=== PATIENT | male | born 1960 | race Two or more races ===

== ENCOUNTER 2019-06-22 09:09 | Outpatient (CLI) | payer OTHER | END 2019-06-22 15:00 | disposition home or self-care (01) | LOC: LAB 09:09 | DX: K65.0 Generalized (acute) peritonitis (principal); R10.32 Left lower quadrant pain; K57.32 Diverticulitis of large intestine without perforation or abscess without bleeding; K59.04 Chronic idiopathic constipation; K62.4 Stenosis of anus and rectum ==

== ENCOUNTER 2019-06-30 06:10 | Day surgery (SDC) | payer OTHER | END 2019-06-30 11:15 | disposition home or self-care (01) | LOC: AMB-ENDOS 06:10 | DX: K62.4 Stenosis of anus and rectum (principal); K57.30 Diverticulosis of large intestine without perforation or abscess without bleeding ==

== ENCOUNTER 2020-05-24 15:19 | Inpatient (IN) | payer OTHER ==
[~2020-05-24] VITALS: Ht 160 cm; Wt 74.8 kg
[2020-06-09] MEDS ORDERED: HYOSCYAMINE0.125 M1 SL (14:47)
[2020-06-09] MEDS ORDERED: PANTOPRAZOLE SO40 MG PO (14:48)
[2020-06-09] MEDS ORDERED: DICLOFENAC SODI75 MG PO (14:48)
[2020-06-09] MEDS ORDERED: INTESTINEX680 M1 PO (14:48)
== END 2020-06-09 16:50 | disposition home or self-care (01) | DRG 330 ==
LOC: SURH 06-06 05:25 → O/R 06-06 05:25 → SURH 06-06 08:45
PROVIDERS: ADMIT Surgery; ATTEND Surgery
PROC: 0DBN4ZZ Excision of Sigmoid Colon, Percutaneous Endoscopic Approach (ICD-10-PCS; principal; 2020-06-06 10:15)
DX: K57.30 Diverticulosis of large intestine without perforation or abscess without bleeding (principal); K91.30 Postprocedural intestinal obstruction, unspecified as to partial versus complete; Z20.828 Contact with and (suspected) exposure to other viral communicable diseases

== ENCOUNTER 2020-12-09 08:08 | Outpatient (CLI) | payer OTHER ==
[~2020-12-09 08:08] MED LIST: DICLOFENAC SODI75 MG PO; HYOSCYAMINE0.125 M1 SL; INTESTINEX680 M1 PO; PANTOPRAZOLE SO40 MG PO
== END 2020-12-09 15:28 | disposition home or self-care (01) ==
LOC: TOM 08:08
PROVIDERS: ATTEND Surgery
DX: N20.0 Calculus of kidney (principal); K57.32 Diverticulitis of large intestine without perforation or abscess without bleeding; K62.4 Stenosis of anus and rectum; K59.04 Chronic idiopathic constipation; R10.32 Left lower quadrant pain

== ENCOUNTER 2021-06-27 09:04 | Day surgery (SDC) | payer OTHER | END 2021-06-27 11:45 | disposition home or self-care (01) | LOC: AMB-ENDOS 09:04 | PROVIDERS: ATTEND Surgery | DX: K57.32 Diverticulitis of large intestine without perforation or abscess without bleeding (principal); K64.8 Other hemorrhoids; Z20.822 Contact with and (suspected) exposure to COVID-19 ==

== ENCOUNTER 2023-07-01 21:17 | Emergency (ER) | payer OTHER ==
[~2023-07-01] VITALS: Ht 162.6 cm; Wt 77.1 kg
== END 2023-07-02 03:42 | disposition home or self-care (01) ==
LOC: ER 21:17
PROVIDERS: General Practice
DX: R10.32 Left lower quadrant pain (principal)